=== PATIENT | female | born 2000 | race Caucasian/White ===

== ENCOUNTER → 2018-05-17 | Outpatient (CLI) | payer BC | LOC: BMCIMAGING 15:56 | PROVIDERS: ATTEND Physician Assistant | DX: S62.626A Displaced fracture of middle phalanx of right little finger, initial encounter for closed fracture (principal) ==

== ENCOUNTER → 2018-05-29 | Outpatient (CLI) | payer BC | LOC: BMCIMAGING 15:04 | PROVIDERS: ATTEND Physician Assistant | DX: S62.606D Fracture of unspecified phalanx of right little finger, subsequent encounter for fracture with routine healing (principal) ==